=== PATIENT | female | born 1985 | race Caucasian/White ===

== ENCOUNTER 2018-04-23 19:53 | Inpatient (IN) | payer OTHER ==
[~2018-04-23 19:53] MED LIST: Bupivacaine HCl 0.5%/Epinephrine 1:200,000/PF 30 ml Vial ONE
[2018-04-23] MEDS ORDERED: Lidocaine 1% (PF) 30 ML VIAL SC PRN (20:13)
[2018-04-23] MEDS ORDERED: Zolpidem Tartrate 5 MG TAB PO PRN (20:13)
[2018-04-23] MEDS ORDERED: Ondansetron HCl/PF 4 MG/2 ML Vial IVP PRN (20:13)
[2018-04-23] MEDS ORDERED: HYDROcodone/Acetaminophen 5/325 mg Tablet PO PRN ×2 (20:13)
[2018-04-23] MEDS ORDERED: Docusate 100 MG CAP PO PRN (20:13)
[2018-04-23] MEDS ORDERED: Butorphanol Tartrate 1 MG/ML VIAL SLOW IVP PRN (20:13)
[2018-04-23] MEDS ORDERED: Ibuprofen 800 MG TAB PO PRN (20:13)
[2018-04-23] MEDS ORDERED: Promethazine HCl 25 MG/ML VIAL IM PRN (20:13)
[2018-04-23] MEDS ORDERED: Misoprostol 200 MCG TAB PR PRN (20:13)
[2018-04-23] MEDS ORDERED: Diphenoxylate HCl/Atropine Tablet PO PRN ×2 (20:13)
[2018-04-23] MEDS ORDERED: NS / Oxytocin 40 units/1000ml 1,000 ML IV PRN (20:45)
[2018-04-23] MEDS ORDERED: NS w/ Oxytocin 10 units 500 ML IV SCH (21:00)
[2018-04-23] MEDS: Misoprostol 100 MCG TAB VAG SCH (21:17)
[2018-04-23 21:29] LABS: Hemoglobin 12.4 g/dL (12.0-16.0); Mean Corpuscular HGB CONC 34.2 g/dL (32.0-36.0); Mean Corpuscular Hemoglobin 30.9 pg (27.0-31.0); Mean Corpuscular Volume 90.2 fL (78.0-98.0); Mean Platelet Volume 10.2 fL (7.4-10.4); Platelet Count 219 thou/uL (130-400); RBC Distribution Width 14.1 % (11.5-14.5); Red Blood Cell (RBC) Count 4.02 mill/uL (4.20-5.40); White Blood Cell (WBC) Count 10.2 thou/uL (4.8-10.8)
[2018-04-23 22:08] LABS: Syphilis Antibody Nonreactive (Nonreactive); Syphilis Antibody Index 0.05 S/CO (<1.00 Non-Reactive)
[2018-04-24] MEDS: Misoprostol 100 MCG TAB VAG SCH ×2 (00:15→10:02)
[2018-04-24 00:59] LABS: HBSAg Index 0.19 S/CO (0-0.99); Hep B Surf Ag Non-Reactive S/CO (NonReactive)
[2018-04-24] MEDS ORDERED: Fentanyl 4 mcg/Bup 0.1% Cadd 100 ML ONE (02:18)
[2018-04-24] MEDS ORDERED: Acetaminophen 325 MG TAB PO PRN ×2 (03:21→07:34)
[2018-04-24] MEDS ORDERED: diphenhydrAMINE 50 MG/ML VIAL IVP PRN ×2 (03:21→06:45)
[2018-04-24] MEDS ORDERED: Ondansetron HCl/PF 4 MG/2 ML Vial IVP PRN ×4 (03:21→07:34)
[2018-04-24] MEDS ORDERED: Lactated Ringer's 500 ML IV PRN (03:21)
[2018-04-24] MEDS ORDERED: Naloxone HCl 0.4 mg/ml Vial IVP PRN ×2 (03:21)
[2018-04-24] MEDS ORDERED: Hydrocerin (Eucerin) Cream 120 gm Jar TOP PRN (03:21)
[2018-04-24] MEDS ORDERED: Promethazine HCl 25 MG/ML VIAL IM PRN ×3 (03:21→07:34)
[2018-04-24] MEDS ORDERED: ePHEDrine/0.9% NaCl/PF SYRINGE 50 mg/10 ml SLOW IVP PRN (03:21)
[2018-04-24] MEDS ORDERED: Fentanyl 4 mcg/Bupivacaine 0.1% Cassette 100 ML EPIDURAL SCH (03:30)
[2018-04-24] MEDS ORDERED: Communication Order-Pharmacy FS SCH ×2 (03:30→06:45)
[2018-04-24] MEDS ORDERED: Bicitra 30 ML UDCUP ONE (04:51)
[2018-04-24] MEDS ORDERED: CEFAZOLIN/Water 2 GM/20 ML SYRINGE ONE (04:51)
[2018-04-24] MEDS ORDERED: Bupivacaine 0.75% W/DEXTROSE 8.25% 2 ML AMP ONE (06:05)
[2018-04-24] MEDS ORDERED: Lidocaine 2% PF Inj 2 ML VIAL ONE ×2 (06:05→06:24)
[2018-04-24] MEDS ORDERED: Morphine PF 1 MG/ML SYR ONE (06:05)
[2018-04-24] MEDS ORDERED: Lidocaine 2% 10 ML INJ ONE (06:10)
[2018-04-24] MEDS ORDERED: Dexamethasone 4 mg/ml Vial ONE (06:20)
[2018-04-24] MEDS ORDERED: Oxytocin 10 UNITS/ML VIAL ONE ×3 (06:20→07:09)
[2018-04-24] MEDS ORDERED: Ondansetron HCl/PF 4 MG/2 ML Vial ONE ×2 (06:20→16:32)
[2018-04-24] MEDS ORDERED: Succinylcholine Chloride 20 MG/ML 10 ml SYRINGE FS ONE ×2 (06:24→16:32)
[2018-04-24] MEDS ORDERED: PROPOFOL 20 ML ONE (06:24)
[2018-04-24] MEDS ORDERED: L&D-Morphine 4 MG/ML VIAL SLOW IVP PRN (06:45)
[2018-04-24] MEDS ORDERED: Zolpidem Tartrate 5 MG TAB PO PRN ×2 (06:45→07:34)
[2018-04-24] MEDS ORDERED: Naloxone HCl 0.4 mg/ml Vial IV PRN (06:45)
[2018-04-24] MEDS ORDERED: diphenhydrAMINE 50 MG/ML VIAL IM PRN (06:45)
[2018-04-24] MEDS ORDERED: diphenhydrAMINE 25 MG CAP PO PRN ×2 (06:45→07:34)
[2018-04-24] MEDS ORDERED: Ketorolac Tromethamine 30 MG/ML VIAL IVP SCH (06:45)
[2018-04-24] MEDS ORDERED: fentaNYL Citrate/PF 2,000 MCG in Sodium Chloride 0.9% 60 ML IV PRN (06:45)
[2018-04-24] MEDS ORDERED: Ketorolac Tromethamine 30 MG/ML VIAL ONE ×2 (07:05→16:32)
[2018-04-24] MEDS ORDERED: Fentanyl 100 MCG/2 ML VIAL ONE (07:15)
[2018-04-24 07:23] LABS: Analyzer IN Cardio OR; Base Excess (BEa) -8.1 mEq/L (-2.0 to +3.0)
[2018-04-24] MEDS ORDERED: Lanolin Ointment 7 GM TUBE TOP PRN (07:34)
[2018-04-24] MEDS ORDERED: Bisacodyl 10 MG SUPP PR PRN (07:34)
[2018-04-24] MEDS ORDERED: Adacel (T-DAP) 0.5 ML VIAL IM ONE (07:34)
[2018-04-24] MEDS ORDERED: HYDROcodone/Acetaminophen 5/325 mg Tablet PO PRN ×2 (07:34)
[2018-04-24] MEDS ORDERED: NS / Oxytocin 40 units/1000ml 1,000 ML IV SCH (07:45)
[2018-04-24] MEDS ORDERED: Lactated Ringer's 1,000 ML IV SCH (07:45)
[2018-04-24] MEDS ORDERED: hydrALAZINE 20 MG/ML VIAL SLOW IVP SCH (09:00)
[2018-04-24] MEDS: Prenatal Vitamin 1 TAB PO SCH (10:03)
[2018-04-24] MEDS: Docusate Calcium (SURFAK) 240 MG CAP PO SCH ×2 (10:03→20:35)
[2018-04-24] MEDS: Ferrous Sulfate 325 MG TAB PO SCH ×2 (10:03→22:49)
[2018-04-24] MEDS ORDERED: Ibuprofen 800 MG TAB PO SCH ×2 (14:00)
[2018-04-24] MEDS: Ketorolac Tromethamine 30 MG/ML VIAL IVP SCH ×3 (14:24→20:35)
[2018-04-24] MEDS: Simethicone Chewable 80 MG TAB PO PRN (14:25)
[2018-04-24] MEDS ORDERED: Dexamethasone 20 MG/5 ML VIAL ONE (16:32)
[2018-04-24] MEDS ORDERED: PROPOFOL 200 MG/20 ML VIAL ONE (16:32)
[2018-04-24] MEDS ORDERED: Lidocaine 1% PF 5 ML VIAL ONE (16:32)
[2018-04-25] MEDS: Ketorolac Tromethamine 30 MG/ML VIAL IVP SCH ×4 (01:31→15:30)
[2018-04-25 05:42] LABS: Hemoglobin 9.5 g/dL (12.0-16.0); Mean Corpuscular HGB CONC 33.4 g/dL (32.0-36.0); Mean Corpuscular Hemoglobin 30.7 pg (27.0-31.0); Mean Corpuscular Volume 91.8 fL (78.0-98.0); Mean Platelet Volume 8.8 fL (7.4-10.4); Platelet Count 185 thou/uL (130-400); RBC Distribution Width 14.1 % (11.5-14.5); Red Blood Cell (RBC) Count 3.11 mill/uL (4.20-5.40); White Blood Cell (WBC) Count 9.5 thou/uL (4.8-10.8)
--- NOTE | 2018-04-25 07:49 | OP ---
DATE OF PROCEDURE: 04/24/2018 ATTENDING STAFF PHYSICIAN: Sg Underwood M.D. SURGEON: Sg Underwood M.D. CONTINUOUS WAVE OPERATOR SURGEON: Mikala Zavala M.D. PREOPERATIVE DIAGNOSES: 1. Term intrauterine at 39 weeks. 2. Non-reassuring heart rate tracing. POSTOPERATIVE DIAGNOSES: 1. Term intrauterine at 39 weeks. 2. Non-reassuring heart rate tracing. PROCEDURE: Primary low-transverse section. ANESTHESIA: 1. Epidural catheterization. 2. General endotracheal. FINDINGS: 1. Category 3 non-reassuring heart rate tracing. 2. Viable female , 5 pounds 10 ounces, Apgars 2 and 9. 3. Normal uterus, tubes, and ovaries. COMPLICATIONS: None. SPECIMENS REMOVED: Cord and blood gas. BLOOD LOSS: 500 mL (QBL 405 mL). HISTORY AND INDICATIONS: Ms. Tamanna Nobles is a very pleasant 32-year-old Latin-Slovenian female G1, P1, who I saw in my clinic for obstetric care. Tamanna presented to Labor and Delivery on the [facility] of 04/23/2018 for a term induction. She was complaining of significant abdominopelvic discomfort. Her cervix at the time of admission was 150 and -3. She received 1 Cytotec as her ripening agent. Subsequently, she began to experience a non-reassuring heart rate tracing. Early on the [facility] of 04/24/2018, she requested epidural for anesthesia. Shortly after epidural, tachycardia wa s noted with repetitive decelerations. I presented to evaluate the labor situation. The patient was extremely uncomfortable. The heart rate tracing was a category 3 with tachycardia, decr eased beat to beat variability, and repetitive decelerations. In light of the clinical situation, a decision has been made to proceed with a primary low-transverse section. The patient was co unseled and surgical disclosures were signed and placed in the chart. Questions answered to the harshad ent and family's satisfaction. DESCRIPTION OF PROCEDURE: After thorough consent and counseling, Ms. Nobles was taken to the [facility] room and an adequate level of anesthesia was obtained by general endotracheal anesthesia, as the ep idural did not provide adequate pain control. Prior to induction of general anesthetic, the patient was prepped and draped in the usual sterile fashion for abdominal surgery. A Solis had previously be en placed in the bladder, which was noted to be draining clear urine. Attention was then turned to p erforming the emergent low-transverse delivery with a general anesthetic. A Pfannenstiel incision was made, carried sharply to the fascia, which was also sharply incised. The midline was identified and the rectus muscles were retracted laterally. The abdominal peritoneal ca vity was entered with usual safeguards carried out. A bladder flap was created on the vesicouterine peritoneum and a bladder blade was placed. A low-transverse incision was made on the well-developed lower uterine segment. Upon entering the amniotic sac, a small amount of clear amniotic fluid was vi sualized. The was noted to be vertex presentation in the occiput anterior position, still hig h in the pelvis. Head was delivered and baby was immediately bulb suctioned on the abdomen. Shoulde rs and body were then delivered in an atraumatic fashion. The cord was doubly clamped and cut and th e infant was handed to the Neonatology team in attendance for the delivery. Dr. Eileen Thomas was e attending lidder. Immediate resuscitative measures were performed. The infant was a viable female weighing 5 pounds 10 ounces with Apgars of 2 and 9 obtained at 1 and 5 minutes, respectively. The baby responded very well to conservative resuscitative measures with good Apgars noted at 5 in 10 minutes. Cord and blood gases were obtained. The placenta was manually removed from the uterus. The uterus was exteriorized and good tone was noted. The uterine cavity was cleared of remaining cl ot and fluid. The low-transverse incision was closed in running-locking ligature of #1 chromic. A s econd imbricating layer was placed to facilitate strength and hemostasis. The vesicouterine peritone um was reapproximated with a running ligature of 3-0 Monocryl. The posterior cul-de-sac and gutters cleared of clot and fluid. The uterus, fallopian tubes, and ovaries were inspected and noted to be n ormal in appearance with no pathology identified. Seprafilm was applied to the low-transverse incisi on and to the anterior aspect of the uterus for adhesion prevention. The uterus was returned to the abdomen and good tone and hemostasis was appreciated. Lap, sponge, and needle counts were correct. The peritoneum was closed with a running ligature of 2-0 Vicryl. The rectus muscles were reapproxima keisha in midline with interrupted ligatures of 2-0 Vicryl and 0 chromic suture. The fascia was then cl osed with 2 ligatures of 0 Vicryl suture, which were tied in the midline. There was good fascial int egrity noted. The incision was irrigated with copious amount of warm normal saline. The subcutaneou s tissue was closed with interrupted ligatures of 2-0 plain suture. The skin was closed with a subcu ticular stitch of 4-0 Monocryl and dressed with Dermabond. A pressure dressing and ice packs were spaulding bsequently placed. Lap, sponge, and needle counts correct x3. Estimated blood loss during the surgi shruti procedure was approximately 500 mL. QBL following the procedure was 405 mL. The patient was jensen kened, extubated, and taken to postanesthesia care unit in good condition. Immediately following surgery, the patient and family were made aware of the surgical procedure and o perative findings. Questions answered to their satisfaction. There were very appreciative of the ca re rendered here at [facility] this morning. Mother and baby were doing well postoperatively.
[2018-04-25] MEDS: Docusate Calcium (SURFAK) 240 MG CAP PO SCH ×2 (09:44→21:08)
[2018-04-25] MEDS: Simethicone Chewable 80 MG TAB PO PRN ×2 (09:44→18:31)
[2018-04-25] MEDS: Prenatal Vitamin 1 TAB PO SCH (09:44)
[2018-04-25] MEDS: Ferrous Sulfate 325 MG TAB PO SCH ×2 (09:44→22:11)
[2018-04-25] MEDS ORDERED: HYDROcodone/Acetaminophen 5/325 mg Tablet PO PRN (13:00)
[2018-04-25] MEDS: Ibuprofen 800 MG TAB PO SCH ×2 (14:25→22:11)
[2018-04-25] MEDS: HYDROcodone/Acetaminophen 5/325 mg Tablet PO PRN ×3 (14:26→22:39)
[2018-04-26] MEDS: Ketorolac Tromethamine 30 MG/ML VIAL IVP SCH ×2 (01:18→07:30)
[2018-04-26] MEDS: Simethicone Chewable 80 MG TAB PO PRN (05:11)
[2018-04-26] MEDS: Ibuprofen 800 MG TAB PO SCH (05:11)
[2018-04-26] MEDS: Docusate Calcium (SURFAK) 240 MG CAP PO SCH (09:34)
[2018-04-26] MEDS: Prenatal Vitamin 1 TAB PO SCH (09:34)
[2018-04-26] MEDS: Ferrous Sulfate 325 MG TAB PO SCH (09:34)
[2018-04-26] MEDS: HYDROcodone/Acetaminophen 5/325 mg Tablet PO PRN (10:38)
[2018-04-26 11:57] VITALS: BP 145/86; TEMP 98.8
== END 2018-04-26 14:00 | disposition home or self-care (01) | DRG 788 ==
LOC: L&D 19:53 → 3SW 04-24 10:16
PROVIDERS: ADMIT Obstetrics & Gynecology; ATTEND Obstetrics & Gynecology
PROC: 3E033VJ Introduction of Other Hormone into Peripheral Vein, Percutaneous Approach (ICD-10-PCS; 2018-04-23)
PROC: 10907ZC Drainage of Amniotic Fluid, Therapeutic from Products of Conception, Via Natural or Artificial Opening (ICD-10-PCS; 2018-04-23)
PROC: 10D00Z1 Extraction of Products of Conception, Low, Open Approach (ICD-10-PCS; principal; 2018-04-24)
DX: O76 Abnormality in fetal heart rate and rhythm complicating labor and delivery (principal); Z3A.39 39 weeks gestation of pregnancy; Z37.0 Single live birth
CPT/HCPCS: 36415; 36416; 51702; 82805; 85027; 86780; 86850; 86900; 86901; 87340; J0360; J0670; J1100; J1885; J2001; J2274; J2405; J2590; J2704; J3010; J3490; J7050

== ENCOUNTER 2018-05-22 16:28 | Observation (INO) | payer OTHER ==
[2018-05-22] MEDS ORDERED: Ketorolac Tromethamine 30 MG/ML VIAL ONE (17:04)
[2018-05-22 17:07] LABS: Band 2 % (5-11); Eosinophils 1 % (0-10); Hemoglobin 11.7 g/dL (12.0-16.0); Lymphocytes 15 % (21-51); MDiff Complete? YES; Mean Corpuscular HGB CONC 32.1 g/dL (32.0-36.0); Mean Corpuscular Hemoglobin 27.9 pg (27.0-31.0); Mean Corpuscular Volume 86.8 fL (78.0-98.0); Monocytes 8 % (0-10); Neutrophil 73 % (42-75); PLT Morphology Comment Appears Adequate; Platelet Count 337 thou/uL (130-400); RBC Distribution Width 13.2 % (11.5-14.5); Reactive Lymphocytes 1 % (0-10); Red Blood Cell (RBC) Count 4.18 mill/uL (4.20-5.40); White Blood Cell (WBC) Count 10.6 thou/uL (4.8-10.8)
[2018-05-22 17:35] LABS: Anion Gap 12 mmol/L (10-20); BUN (Urea Nitrogen) 12 mg/dL (7.0-18.7); Calc. Creatinine Clearance 0 mL/min (70-130); Calcium 9.8 mg/dL (7.8-10.44); Carbon Dioxide 24 mmol/L (22-29); Chloride 108 mmol/L (98-107); Estimated GFR-MDRD 88; Glucose 78 mg/dL (70-105); Sodium 140 mmol/L (136-145)
--- NOTE | 2018-05-22 18:38 | ULT ---
LEFT BREAST ULTRASOUND AT THE NINE OCLOCK POSITION: HISTORY: Chest wall mass. TECHNIQUE: Multiple longitudinal and transverse images of the left breast are obtained. FINDINGS: At the 9 o'clock position, there is a 3.2 x 1.5 cm soft tissue mass, with blood flow. This may repre sent a left chest wall solid lesion. A surgical consultation is recommended. If this is within the left breast parenchyma, correlate with mammography and possible biopsy of the left breast lesion. IMPRESSION: Solid left breast hypoechoic mass. POS: GIRISH
[2018-05-22] MEDS ORDERED: Ondansetron ODT 4 MG TAB SL PRN ×2 (19:42→20:37)
[2018-05-22] MEDS ORDERED: Ondansetron PF 4 MG/2 ML Vial IVP PRN ×2 (19:42→20:36)
[2018-05-22] MEDS ORDERED: Acetaminophen 325 MG TAB PO PRN (19:42)
[2018-05-22] MEDS ORDERED: Sodium Chloride 0.9% 1,000 ML IV SCH (19:42)
[2018-05-22 20:00] VITALS: BMI 29.9
[2018-05-22] MEDS: Sodium Chloride 0.9% 1,000 ML IV SCH (20:58)
[2018-05-22] MEDS: Morphine 4 MG/ML VIAL SLOW IVP PRN ×2 (20:59→23:47)
[2018-05-22] MEDS: Acetaminophen 325 MG TAB PO PRN (20:59)
[2018-05-23] MEDS: Vancomycin HCl 1 GM in Premix Bag 1 BAG IVPB SCH ×3 (02:11→18:13)
[2018-05-23] MEDS: Morphine 2 MG/ML SYRINGE SLOW IVP PRN ×3 (02:17→08:45)
[2018-05-23] MEDS: Sodium Chloride 0.9% 1,000 ML IV SCH ×2 (05:39→08:49)
[2018-05-23] MEDS: Acetaminophen 325 MG TAB PO PRN (07:34)
--- NOTE | 2018-05-23 09:03 | HP ---
CHIEF COMPLAINT: Left breast pain. HISTORY: The patient is a 32-year-old female, currently breast feeding with a 6-day history of progr essive pain and redness in the left breast, became much worse yesterday. No drainage. She has been since her baby was born 4 weeks ago. No fever. She has had chills. This is her first child. PAST MEDICAL HISTORY: Otherwise, healthy. PAST SURGICAL HISTORY: She had a colostomy when she was an and then she had that revised. MEDICATIONS: Ibuprofen. SOCIAL HISTORY: She is single, unemployed. No tobacco, no alcohol. FAMILY HISTORY: No family history of breast cancer. PHYSICAL EXAMINATION: VITAL SIGNS: Temperature 97.6, pulse 83, blood pressure 105/75. GENERAL: She is a well-developed, well-nourished female, in no apparent distress. HEENT: Unremarkable. LUNGS: Clear. HEART: Regular rate and rhythm. BREAST EXAM: She has got about a 4 cm indurated mass in the medial aspect of the left breast with ov erlying skin erythema and tenderness. ABDOMEN: Soft, nondistended, nontender. EXTREMITIES: Unremarkable. LABORATORY AND X-RAY FINDINGS: Her white count is 10.6, H and H 11 and 36, platelet count 337. Elec trolytes are fine. She had an ultrasound that shows a 3 x 1.5 cm soft tissue mass with blood flow wi thin the breast parenchyma that is somewhat suspicious, as it is a hypoechoic mass. ASSESSMENT: Left breast mass. The mastitis versus abscess. PLAN: I and D incisional biopsy. CONSENT: I have discussed planned procedure as well as risk of bleeding, infection, need to leave th e skin open, recurrence. She understands and gives informed consent.
[2018-05-23] MEDS ORDERED: Fentanyl 100 MCG/2 ML VIAL ONE ×4 (10:36→12:38)
[2018-05-23] MEDS ORDERED: Bupivacaine/Epinephrine 0.25% 30 ML VIAL ONE (10:55)
[2018-05-23] MEDS ORDERED: Lidocaine 2% PF 5 ML VIAL ONE (10:55)
[2018-05-23] MEDS ORDERED: Sodium Chloride 0.9% 10 ML ONE (11:25)
[2018-05-23] MEDS ORDERED: Ketorolac Tromethamine 30 MG/ML VIAL ONE ×2 (12:11→15:35)
[2018-05-23] MEDS ORDERED: Ondansetron PF 4 MG/2 ML Vial ONE ×2 (12:11→15:35)
[2018-05-23] MEDS ORDERED: HYDROmorphone 2 MG/ML VIAL SLOW IVP PRN (12:18)
[2018-05-23] MEDS ORDERED: Promethazine HCl 25 MG/ML VIAL SLOW IVP PRN (12:18)
[2018-05-23] MEDS ORDERED: Meperidine HCl/PF 25 MG/ML VIAL SLOW IVP PRN (12:18)
[2018-05-23] MEDS ORDERED: Promethazine HCl 25 MG/ML VIAL IM PRN (12:18)
--- NOTE | 2018-05-23 12:21 | OP ---
DATE OF PROCEDURE: 05/23/2018 PREOPERATIVE DIAGNOSIS: Left breast abscess. SURGEON: Usman Kaiser M.D. PROCEDURE PERFORMED: Incision and drainage of deep left breast abscess and biopsy. INDICATIONS: This is a 32-year-old female, 4 weeks , who is currently , devel oped a painful mass in the left breast with erythema. FINDINGS: A 3-cm abscess cavity, containing creamy purulent fluid. PROCEDURE IN DETAIL: After informed consent was obtained, the patient was taken to the operating jacquelyn m and given general endotracheal anesthesia. She was placed in the supine position. Her breast was prepped and draped in the usual fashion. Local anesthesia infiltrated subcutaneously and deep. An e lliptical incision was performed. A piece of skin was removed and sent for pathology. This released a purulent fluid, which was sent for culture and sensitivity as well as Gram stain. The cavity was irrigated with saline and hemostasis achieved with electrocautery. The wound was packed open with Be tadine gauze, covered by dry gauze. The patient tolerated the procedure well and was transferred to recovery in good condition. Sponge and needle count verified correct x2.
[2018-05-23] MEDS: HYDROcodone/Acetaminophen 10/325 mg Tablet PO PRN ×3 (14:19→22:03)
[2018-05-23] MEDS ORDERED: PROPOFOL 200 MG/20 ML VIAL ONE (15:35)
[2018-05-23] MEDS ORDERED: Succinylcholine Chloride 20 MG/ML 10 ml SYRINGE FS ONE (15:35)
[2018-05-23] MEDS ORDERED: Lidocaine 1% PF 5 ML VIAL ONE (15:35)
[2018-05-24 01:37] LABS: Vancomycin, Trough 20.8 ug/mL
[2018-05-24] MEDS: HYDROcodone/Acetaminophen 10/325 mg Tablet PO PRN ×3 (02:33→10:31)
[2018-05-24] MEDS: Vancomycin HCl 1 GM in Premix Bag 1 BAG IVPB SCH ×2 (02:35→10:23)
--- NOTE | 2018-05-24 11:20 | DIS ---
DISCHARGE DIAGNOSIS: Left breast abscess. PROCEDURES DURING ADMISSION: Incision and drainage of left breast abscess. HOSPITAL COURSE: The patient was admitted, given IV antibiotics, taken to the operating room where s he underwent I and D of this abscess, was irrigated out. Cultures revealed gram-positive cocci consi stent with staph. She was treated with vancomycin. She is doing better now. Pain is a lot better. She is afebrile. She is discharged home on hydrocodone, Bactrim, and clindamycin. She will follow up with me in 2 weeks.
[2018-05-24 12:23] VITALS: BP 113/77; TEMP 97.5
== END 2018-05-24 13:09 | disposition home or self-care (01) ==
LOC: SCSER 16:28 → SURG B 17:18
PROVIDERS: ADMIT Surgery; ATTEND Surgery
PROC: 0H9U0ZX Drainage of Left Breast, Open Approach, Diagnostic (ICD-10-PCS; principal; 2018-05-23)
PROC: 0HBU0ZX Excision of Left Breast, Open Approach, Diagnostic (ICD-10-PCS; 2018-05-23)
DX: N61.1 Abscess of the breast and nipple (principal); B95.62 Methicillin resistant Staphylococcus aureus infection as the cause of diseases classified elsewhere; Z79.2 Long term (current) use of antibiotics; Z79.899 Other long term (current) drug therapy
CPT/HCPCS: 36415; 80048; 80202; 83605; 85025; 87070; 87077; 87186; 87205; 88305; 96361; 96365; 96366; 96374; 96375; 96376; G0378; J1885; J2001; J2270; J2405; J2704; J3010; J3370

== ENCOUNTER 2018-11-20 23:32 | Emergency (ER) | payer SELFPAY | END 2018-11-20 23:50 | disposition home or self-care (01) | LOC: SCSER 23:32 | DX: L02.421 Furuncle of right axilla (principal) | CPT/HCPCS: 99282 ==

== ENCOUNTER 2019-06-06 13:21 | Emergency (ER) | payer SELFPAY ==
[2019-06-06] MEDS ORDERED: Ketorolac Tromethamine 30 MG/ML VIAL ONE (13:47)
[2019-06-06 13:50] LABS: Base Excess (BEa) -2.7 mEq/L (-2.0 to +3.0); CO2 Tension 33.4 mmHg (35.0-45.0); Hemoglobin (Hb) 12.5 g/dL (12.0-16.0); O2 Tension (PaO2) 471.7 mmHg (80.0-100.0); pH, Arterial 7.42 (7.35-7.45)
[2019-06-06 13:51] LABS: Analyzer IN Cardio ER; Calcium, Ionized 1.19 mmol/L (1.12-1.30); Carboxyhemoglobin (COHb) 0.5 gm% (0.0-3.0); Puncture Site LRA
[2019-06-06 14:56] LABS: #Basophils 0.1 thou/uL (0.0-0.2); #Monocytes 0.6 thou/uL (0.11-0.59); #Neutrophils 2.3 thou/uL (1.40-6.50); %Basophils 1.2 % (0.0-1.0); %Eosinophils 0.7 % (0.0-10.0); %Lymphocytes 39.8 % (21.0-51.0); %Monocytes 11.8 % (0.0-10.0); %Neutrophils 46.5 % (42.0-75.0); Hemoglobin 11.8 g/dL (12.0-16.0); Mean Corpuscular Hemoglobin 28.9 pg (27.0-31.0); Mean Corpuscular Volume 85.1 fL (78.0-98.0); Platelet Count 241 thou/uL (130-400); RBC Distribution Width 13.7 % (11.5-14.5); Red Blood Cell (RBC) Count 4.07 mill/uL (4.20-5.40); White Blood Cell (WBC) Count 4.9 thou/uL (4.8-10.8)
[2019-06-06 14:58] LABS: BHCG - Serum Negative (NEGATIVE); Pregs Control Background? CLEAR/WHITE (CLR/WHITE); Pregs Control Bar Appear? YES (CONTROL BAR)
[2019-06-06 15:06] LABS: ALT (SGPT) 9 U/L (8-55); AST (SGOT) 17 U/L (5-34); Alkaline Phosphatase 54 U/L (40-110); Anion Gap 13 mmol/L (10-20); BUN (Urea Nitrogen) 9 mg/dL (7.0-18.7); Bilirubin, Total 0.3 mg/dL (0.2-1.2); CK (CPK) 84 U/L (29-168); Calc. Creatinine Clearance 0 mL/min (70-130); Calcium 9.1 mg/dL (7.8-10.44); Carbon Dioxide 23 mmol/L (22-29); Chloride 107 mmol/L (98-107); Estimated GFR-MDRD 81; Globulin 2.4 g/dL (2.4-3.5); Glucose 78 mg/dL (70-105); Potassium 4.9 mmol/L (3.5-5.1); Protein, Total 6.4 g/dL (6.0-8.3); Sodium 138 mmol/L (136-145)
--- NOTE | 2019-06-09 19:50 | EKG ---
Test Reason : Blood Pressure : / mmHG Vent. Rate : 057 BPM Atrial Rate : 057 BPM P-R Int : 138 ms QRS Dur : 070 ms QT Int : 392 ms P-R-T Axes : 060 019 024 degrees QTc Int : 381 ms Sinus bradycardia Possible Anterior infarct , age undetermined Abnormal ECG Confirmed by HALLIE PEREZ D.O. ([id number]), field map editor ANA SOTO ([id number]) on 06/09/2019 7:49:03 PM Referred By: Confirmed By:HALLIE PEREZ D.O.
== END 2019-06-06 15:35 | disposition home or self-care (01) ==
LOC: ERS 13:21
DX: Z77.098 Contact with and (suspected) exposure to other hazardous, chiefly nonmedicinal, chemicals (principal)
CPT/HCPCS: 36415; 80053; 82550; 82805; 83605; 84484; 84703; 85025; 93005; 94760; 96374; J1885

== ENCOUNTER 2023-12-04 00:36 | Day surgery (SDC) | payer BC ==
[2023-12-04] MEDS ORDERED: SUCCINYLCHOLINE/SOD CL,ISO/PF 200 MG/10 ML SYRINGE FS ONE (00:52)
[2023-12-04] MEDS ORDERED: PROPOFOL 20 ML ONE (00:52)
[2023-12-04] MEDS ORDERED: Lidocaine 2% PF 5 ML VIAL ONE (01:11)
[2023-12-04] MEDS ORDERED: Famotidine/PF 20 mg/2ml Vial ONE (01:20)
[2023-12-04] MEDS ORDERED: Ondansetron PF 4 MG/2 ML Vial ONE (01:41)
[2023-12-04] MEDS ORDERED: fentaNYL 50 mcg/mL 1 mL Vial ONE (02:06)
== END 2023-12-04 03:08 | disposition home or self-care (01) ==
LOC: SDC 00:36
PROVIDERS: ATTEND Dentist Pediatric Dentistry
PROC: 0DC58ZZ Extirpation of Matter from Esophagus, Via Natural or Artificial Opening Endoscopic (ICD-10-PCS; principal; 2023-12-04)
DX: T18.128A Food in esophagus causing other injury, initial encounter (principal); K22.2 Esophageal obstruction; Z98.84 Bariatric surgery status; Z87.59 Personal history of other complications of pregnancy, childbirth and the puerperium; Z98.890 Other specified postprocedural states; Z88.2 Allergy status to sulfonamides; Z79.899 Other long term (current) drug therapy; Z87.19 Personal history of other diseases of the digestive system
CPT/HCPCS: J2001; J2405; J2704; J3010; S0028

== ENCOUNTER 2025-03-18 17:37 | Emergency (ER) | payer SELFPAY, OTHER ==
[2025-03-18] MEDS ORDERED: Ketorolac Tromethamine 30 MG (1 mL) VIAL ONE (20:36)
[2025-03-18] MEDS ORDERED: Orphenadrine Citrate 100 MG ER.TAB ONE (20:36)
== END 2025-03-18 21:02 | disposition home or self-care (01) ==
LOC: ERS 17:37
DX: S39.012A Strain of muscle, fascia and tendon of lower back, initial encounter (principal); X58.XXXA Exposure to other specified factors, initial encounter
CPT/HCPCS: 99282; J1885